=== PATIENT | female | born 1965 | race Caucasian/White ===

== ENCOUNTER → 2023-09-01 14:15 | Outpatient (REF) | payer BC, SELFPAY | LOC: HWRAD 14:15 | PROVIDERS: ATTENDING PHYSICIAN Physician Assistant Medical; FAMILY PHYSICIAN Internal Medicine | DX: Z13.820 Encounter for screening for osteoporosis (principal); Z00.00 Encounter for general adult medical examination without abnormal findings | CPT/HCPCS: 77080 ==

== ENCOUNTER → 2024-09-26 13:20 | Outpatient (REF) | payer OTHER, SELFPAY | LOC: HWWDC 13:20 | PROVIDERS: ATTENDING PHYSICIAN Obstetrics & Gynecology Gynecology; FAMILY PHYSICIAN Internal Medicine | DX: Z12.31 Encounter for screening mammogram for malignant neoplasm of breast (principal) | CPT/HCPCS: 77063; 77067 ==